=== PATIENT | female | born 2000 | race Caucasian/White ===

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

== ENCOUNTER 2022-05-16 15:06 | Emergency (ER) | payer OTHER ==
[2022-05-16 15:16] VITALS: RESP 18; TEMP 98.1
--- NOTE | 2022-05-16 15:44 | ED ---
Chest Pain HPI - General Chief Complaint: Chest Pain Stated Complaint: Chest Pain Time Seen by Provider: 05/16/22 15:34 Source: patient, RN notes reviewed Mode of arrival: ambulatory Limitations: no limitations - History of Present Illness Initial Comments: This is a 22-year-old female who presents to the emergency department for chest pain. States that for the last 2-3 days, she has had intermittent episodes of chest pain that last for approximately 2 minutes. There is nothing that triggers these episodes and they occur at no particular time of the day with no specific events like exertion. Feels like she may have some shortness of breath with these episodes. Describes this as a sharp pain that starts in the center of her chest and moves to the left side. States that during an episode today, the pain went down the left arm and the left arm turned numb and cold. Denies any abdominal pain, nausea, or vomiting. She has no personal or family history of cardiac issues. Denies any fevers, chills, sore throat, cough, palpitations, abdominal pain, nausea, vomiting, diarrhea, back pain, or headaches. MD Complaint: chest pain Onset/Timin -: days(s) Pain Location: substernal, left chest Consistency: intermittent Treatments Prior to Arrival: none - Related Data Previous Rx's Medication Instructions Recorded Ibuprofen [Motrin] 600 mg PO Q8HR PRN #30 tab 05/19/20 Ibuprofen [Motrin] 600 mg PO Q8HR PRN #20 tab 10/17/20 Cyclobenzaprine [Flexeril] 5 mg PO TID PRN #20 tablet 05/16/22 Ketorolac [Toradol] 10 mg PO Q6HR PRN #12 tab 05/16/22 Allergies Allergy/AdvReac Type Severity Reaction Status Date / Time No Known Allergies Allergy Verified 05/16/22 15:16 Review of Systems ROS Statement: Those systems with pertinent positive or pertinent negative responses have been documented in the HPI. ROS Other: All systems not noted in ROS Statement are negative. EKG Findings - EKG Comments: EKG Findings:: Sinus rhythm with sinus arrhythmia. Normal axis. Ventricular rate 66 bpm, ID interval 148 ms, QRS duration 90 ms, QTC 409 ms. Past Medical History Past Medical History: No Reported History History of Any Multi-Drug Resistant Organisms: None Reported Past Surgical History: Tonsillectomy Additional Past Surgical History / Comment(s): wisdom teeth removal Past Psychological History: No Psychological Hx Reported Smoking Status: Vaper Past Alcohol Use History: None Reported Past Drug Use History: None Reported General Exam Limitations: no limitations General appearance: alert, in no apparent distress Head exam: Present: atraumatic, normocephalic, normal inspection Respiratory exam: Present: normal lung sounds bilaterally. Absent: respiratory distress, wheezes, rales, rhonchi, stridor, chest wall tenderness Cardiovascular Exam: Present: regular rate, normal rhythm, normal heart sounds. Absent: systolic murmur, diastolic murmur, rubs, gallop, clicks GI/Abdominal exam: Present: soft, normal bowel sounds. Absent: distended, tenderness, guarding, rebound, rigid Extremities exam: Present: other (2+ radial pulses in the upper extremities bilaterally with no overlying erythema, changes in temperature, or obvious deformities.) Neurological exam: Present: alert, oriented X3, CN II-XII intact Psychiatric exam: Present: normal affect, normal mood Skin exam: Present: warm, dry, intact, normal color. Absent: rash Course Vital Signs 05/16/22 05/16/22 15:14 17:41 Temperature 98.1 F Pulse Rate 75 90 Respiratory 18 18 Rate Blood Pressure 126/76 116/71 O2 Sat by Pulse 99 100 Oximetry Chest Pain MDM - MDM This is a 22-year-old female who presents to the emergency department with chest pain. Lab work was nonactionable. Chest x-ray reveals no acute cardiopulmonary process. The patient has no cardiac risk factors and her presentation, physical exam findings, and overall workup is consistent with an atypical chest pain. Rx for Flexeril and Toradol provided in the event there is a muscle skeletal component to this. She is instructed to use the Flexeril at night until she knows how it affects her, as it may be sedating. She is also advised to avoid taking [id number] anti-inflammatories with the Toradol. She will follow-up with her primary care provider and discuss a referral to cardiology if they feel that it is appropriate. Return precautions reviewed in depth, the patient is instructed to return to the emergency department with any new, worsening, or concerning symptoms. Patient verbalized understanding. This case was discussed in detail with the attending ED physician. Presentation, findings, and treatment plan discussed in detail as well. - Wells Criteria Clinical Symptoms of DVT: (0) No No Alternative Diagnosis: (0) No Immobilization of Surgery in Previous 4 Weeks: (0) No Previous DVT/PE: (0) No Hemoptysis: (0) No Malignancy: (0) No - JOSSELYN Score Age > 65: (0) No 3 or more CAD Risk Factors: (0) No Known CAD with more than 50% Stenosis: (0) No Aspirin use within the Past 7 Days: (0) No Elevated Cardiac Markers: (0) No ST Deviation Greater than 0.5mm: (0) No Disposition Clinical Impression: Atypical chest pain Disposition: HOME SELF-CARE Instructions (If sedation given, give patient instructions): Noncardiac Chest Pain (ED) Additional Instructions: Return to the emergency department with any new, worsening, or concerning symptoms. The Toradol can be taken up to every 6 hours for pain, avoid taking ibuprofen or other anti-inflammatories with this. Take the muscle relaxant at night until you know how it affects you, as it may be sedating. Follow up with your primary care provider in 1-2 days. Prescriptions: Cyclobenzaprine [Flexeril] 5 mg PO TID PRN #20 tablet PRN Reason: Pain Ketorolac [Toradol] 10 mg PO Q6HR PRN #12 tab PRN Reason: Pain Is patient prescribed a controlled substance at d/c from ED?: No Referrals: None,Stated [REFERRING] - 1-2 days
[2022-05-16 16:03] LABS: Basophils % (A) 1 %; Eosinophils # (A) 0.1 k/uL (0-0.7); Eosinophils % (A) 1 %; HCT 39.5 % (34.0-46.0); HGB 13.1 gm/dL (11.4-16.0); Lymphocytes # (A) 2.2 k/uL (1.0-4.8); Lymphocytes % (A) 26 %; MCHC 33.1 g/dL (31.0-37.0); MCV 81.8 fL (80.0-100.0); Mean Platelet Volume 7.7; Monocytes # (A) 0.4 k/uL (0-1.0); Monocytes % (A) 5 %; Neutrophils # (A) 5.4 k/uL (1.3-7.7); Neutrophils % (A) 66 %; Platelet Count 276 k/uL (150-450); RBC 4.83 m/uL (3.80-5.40); RDW 13.1 % (11.5-15.5); WBC 8.2 k/uL (4.0-11.0)
[2022-05-16 16:14] LABS: ALT 16 U/L (4-34); AST 21 U/L (14-36); African American GFR (CKD) >90 (>60 ml/min/1.73 sqM); Albumin 4.7 g/dL (3.5-5.0); Alkaline Phosphatase 61 U/L (38-126); Anion Gap 12 mmol/L; Blood Urea Nitrogen 9 mg/dL (7-17); Calcium 9.4 mg/dL (8.4-10.2); Carbon Dioxide 24 mmol/L (22-30); Chloride 103 mmol/L (98-107); Glucose 88 mg/dL (74-99); Magnesium 2.1 mg/dL (1.6-2.3); Non-African American GFR(CKD) >90 (>60 ml/min/1.73 sqM); Potassium 3.9 mmol/L (3.5-5.1); Sodium 139 mmol/L (137-145); Total Bilirubin 0.3 mg/dL (0.2-1.3); Total Protein 7.6 g/dL (6.3-8.2)
[2022-05-16 16:17] LABS: INR 0.9 (<1.2); Prothrombin Time 10.4 sec (9.0-12.0)
[2022-05-16 16:29] LABS: Appearance,Urine Clear (Clear); Bilirubin,Urine Negative (Negative); Blood,Urine Negative (Negative); Color,Urine Light Yellow; Glucose,Urine (UA) Negative (Negative); Ketones,Urine Negative (Negative); Leukocyte Esterase,Urine Negative (Negative); Nitrite,Urine Negative (Negative); Protein,Urine Negative (Negative); Urobilinogen,Urine <2.0 mg/dL (<2.0)
[2022-05-16] MEDS ORDERED: ORPHENADRINE 30 MG/ML 2 ML VIAL IVP STA (16:38)
[2022-05-16] MEDS ORDERED: KETOROLAC 15 MG/ML 1 ML VIAL IVP STA (16:38)
--- NOTE | 2022-05-16 17:00 | XR ---
EXAMINATION TYPE: XR chest 2V DATE OF EXAM: 05/16/2022 COMPARISON: NONE HISTORY: Chest pain TECHNIQUE: 2 views FINDINGS: Heart and mediastinum are normal. Lungs are clear. Diaphragm is normal. Bony thorax is inta ct. IMPRESSION: Normal chest. No change.
[2022-05-16 17:41] VITALS: BP 116/71; PULSE 90
== END 2022-05-16 17:45 | disposition home or self-care (01) ==
LOC: EC 15:06
DX: R07.89 Other chest pain (principal); F17.290 Nicotine dependence, other tobacco product, uncomplicated
CPT/HCPCS: 36415; 71046; 80053; 81003; 81025; 83735; 84484; 85025; 85379; 85610; 85730; 93005; 99285

== ENCOUNTER 2022-08-30 11:07 | Emergency (ER) | payer OTHER ==
[2022-08-30 12:28] LABS: Basophils % (A) 0 %; Eosinophils # (A) 0.1 k/uL (0-0.7); Eosinophils % (A) 1 %; HCT 39.9 % (34.0-46.0); HGB 13.1 gm/dL (11.4-16.0); Lymphocytes # (A) 1.3 k/uL (1.0-4.8); Lymphocytes % (A) 18 %; MCH 26.4 pg (25.0-35.0); MCHC 32.8 g/dL (31.0-37.0); MCV 80.3 fL (80.0-100.0); Mean Platelet Volume 7.3; Monocytes # (A) 0.5 k/uL (0-1.0); Monocytes % (A) 7 %; Neutrophils # (A) 5.2 k/uL (1.3-7.7); Neutrophils % (A) 72 %; Platelet Count 254 k/uL (150-450); RBC 4.96 m/uL (3.80-5.40); RDW 12.9 % (11.5-15.5); WBC 7.3 k/uL (4.0-11.0)
--- NOTE | 2022-08-30 12:34 | XR ---
EXAMINATION TYPE: XR chest 2V DATE OF EXAM: 08/30/2022 COMPARISON: 05/16/2022 TECHNIQUE: PA and lateral views submitted. HISTORY: Pain FINDINGS: The lungs are clear and there is no pneumothorax, pleural effusion, or focal pneumonia. Heart size normal and no overt failure. Osseous structures demonstrate hypertrophic and degenerative changes of the spine. IMPRESSION: 1. No acute process.
[2022-08-30 12:36] LABS: Appearance,Urine Clear (Clear); Bilirubin,Urine Negative (Negative); Blood,Urine Negative (Negative); Color,Urine Yellow; Glucose,Urine (UA) Negative (Negative); Ketones,Urine Negative (Negative); Leukocyte Esterase,Urine Negative (Negative); Nitrite,Urine Negative (Negative); Protein,Urine Negative (Negative); Specific Gravity,Urine 1.006 (1.001-1.035); Urobilinogen,Urine <2.0 mg/dL (<2.0)
[2022-08-30 12:37] LABS: African American GFR (CKD) >90 (>60 ml/min/1.73 sqM); Albumin 4.3 g/dL (3.5-5.0); Alkaline Phosphatase 132 U/L (38-126); Amylase 32 U/L (30-110); Anion Gap 6 mmol/L; Blood Urea Nitrogen 11 mg/dL (7-17); Calcium 10.2 mg/dL (8.4-10.2); Carbon Dioxide 28 mmol/L (22-30); Chloride 105 mmol/L (98-107); Glucose 101 mg/dL (74-99); INR 0.9 (<1.2); Lipase 162 U/L (23-300); Magnesium 2.1 mg/dL (1.6-2.3); Non-African American GFR(CKD) >90 (>60 ml/min/1.73 sqM); Partial Thromboplastin Time 23.4 sec (22.0-30.0); Potassium 4.4 mmol/L (3.5-5.1); Prothrombin Time 10.1 sec (9.0-12.0); Sodium 139 mmol/L (137-145); Total Protein 7.4 g/dL (6.3-8.2)
[2022-08-30] MEDS ORDERED: ONDANSETRON 4 MG/2 ML VIAL IVP STA (12:40)
[2022-08-30 12:48] LABS: Amphetamine Screen,Urine Not Detected (NotDetected); Barbiturate Screen,Urine Not Detected (NotDetected); Benzodiazepines Screen,Urine Not Detected (NotDetected); Cocaine Screen,Urine Not Detected (NotDetected); Methadone Screen, Urine Not Detected (NotDetected); Opiate Screen,Urine Not Detected (NotDetected); Oxycodone Screen, Urine Not Detected (NotDetected); Phencyclidine Screen,Urine Not Detected (NotDetected); Tricyclic Antidepressant,Urine Not Detected (NotDetected); Urn Cannabinoid Scrn Not Detected (NotDetected)
[2022-08-30 12:57] LABS: AST 753 U/L (14-36)
[2022-08-30 12:58] LABS: ALT 995 U/L (4-34)
--- NOTE | 2022-08-30 13:05 | ED ---
Chest Pain HPI - General Chief Complaint: Chest Pain Stated Complaint: chest pain Time Seen by Provider: 08/30/22 11:43 Source: patient, family, RN notes reviewed Mode of arrival: ambulatory - History of Present Illness Initial Comments: This is a 22-year-old female who presents to the emergency department for chest pain. States that this started last night. She has associated nausea but no vomiting. Describes this as being in the epigastric region with radiation into the back. Symptoms are described as a tightness wrapping around her chest. When these symptoms occur, she feels like she panics and it gets hard to breathe. Denies any history of similar symptoms in the past. This does not occur after she eats. She has no personal or family history of cardiac issues. Denies any fevers, chills, sore throat, cough, palpitations, vomiting, diarrhea, or headaches. MD Complaint: chest pain Onset/Timin -: days(s) Pain Location: substernal, epigastric Pain Radiation: back - Related Data Home Medications Medication Instructions Recorded Confirmed Omeprazole 20 mg PO DAILY PRN 08/30/22 08/30/22 Previous Rx's Medication Instructions Recorded Cyclobenzaprine [Flexeril] 5 mg PO TID PRN #20 tablet 05/16/22 Ondansetron Odt [Zofran Odt] 4 mg PO Q8HR PRN #15 tab 08/30/22 Allergies Allergy/AdvReac Type Severity Reaction Status Date / Time No Known Allergies Allergy Verified 08/30/22 12:20 Review of Systems ROS Statement: Those systems with pertinent positive or pertinent negative responses have been documented in the HPI. ROS Other: All systems not noted in ROS Statement are negative. Past Medical History Past Medical History: No Reported History History of Any Multi-Drug Resistant Organisms: None Reported Past Surgical History: Tonsillectomy Additional Past Surgical History / Comment(s): wisdom teeth removal Past Psychological History: No Psychological Hx Reported Smoking Status: Vaper Past Alcohol Use History: None Reported Past Drug Use History: None Reported General Exam Limitations: no limitations General appearance: alert, in no apparent distress Head exam: Present: atraumatic, normocephalic, normal inspection Respiratory exam: Present: normal lung sounds bilaterally. Absent: respiratory distress, wheezes, rales, rhonchi, stridor Cardiovascular Exam: Present: regular rate, normal rhythm, normal heart sounds. Absent: systolic murmur, diastolic murmur, rubs, gallop, clicks GI/Abdominal exam: Present: soft, tenderness (RUQ and epigastric), normal bowel sounds. Absent: distended Neurological exam: Present: alert, oriented X3, CN II-XII intact Psychiatric exam: Present: normal affect, normal mood Skin exam: Present: warm, dry, intact, normal color. Absent: rash Course Vital Signs 08/30/22 08/30/22 08/30/22 11:18 12:20 12:23 Temperature 98.4 F Pulse Rate 77 77 Pulse Rate [ 67 Medical Reviewer ] Respiratory 18 18 Rate Blood Pressure 125/82 118/80 O2 Sat by Pulse 98 98 Oximetry 08/30/22 08/30/22 13:16 14:14 Temperature 98.2 F Pulse Rate 69 72 Pulse Rate [ Medical Reviewer ] Respiratory 18 17 Rate Blood Pressure 106/78 118/84 O2 Sat by Pulse 98 99 Oximetry Chest Pain MDM - MDM This is a 22-year-old female who presents to the emergency department for chest pain. Was pt. sent in by a medical professional or institution? @ -Her PCP Did you speak to anyone other than the patient for history? @ -Her mother Did you review nursing and triage notes? @ -Agree, accurate with regards to the patient's symptoms. Were old charts reviewed? @ -No Differential Diagnosis? @ -Differential Chest Pain: Stable Angina, Unstable Angina, STEMI, NSTEMI Aortic Dissection, Pneumothorax, Musculoskeletal, Esophageal Spasm GERD, Cholecystitis, Pancreatitis, Zoster, this is not meant to be an all-inclusive list. EKG interpreted by me (3pts min.)? @ -Sinus rhythm. Ventricular rate 73 beats per minute, ID interval 150 ms, QRS duration 85 ms, QTC 376 ms. X-rays interpreted by me (1pt min.)? @ --Chest x-ray obtained, my interpretation identifies no localized consolidations or infiltrates. U/S interpreted by me (1pt. min.)? @ -My interpretation of the gallbladder US reveals sludge and a dilated CBD. What testing was considered but not performed? (CT, X-rays, U/S, labs)? Why? @ -None What meds were considered but not given? Why? @ -None Did you discuss the management of the patient with other professionals? @ -No Did you reconcile home meds? @ -No Was smoking cessation discussed for >3mins.? @ -No Was critical care preformed (if so, how long)? @ -No Were there social determinants of health that impacted care today? How? (Homelessness, low income, unemployed, alcoholism, drug addiction, transportation, low edu. Level, literacy, decrease access to med. care, [facility] [facility], rehab)? @ -No Was there de-escalation of care discussed even if they declined? (Discuss DNR or withdrawal of care, Hospice)? @ -No What co-morbidities impacted this encounter? (DM, HTN, Smoking, COPD, CAD, Cancer, CVA, Hep., AIDS, mental health diagnosis, sleep apnea, morbid obesity)? @ -None Was patient admitted / discharged? @ -Lab work obtained revealing a significant elevation in the patient's liver enzymes. US of the gallbladder reveals gallstones, sludge, and a dilated CBD. The dilated CBD with associated liver enzyme elevation is concerning for a choledocolithiasis. This was discussed with the patient in that because we do not have gastroenterology available here, it is advised that we transfer her to another hospital for management. The patient states that her car is here and she needs to figure out childcare for her daughter and requests outpatient follow up. Dr. Allen spoke with the patient as well regarding the urgency of the situation and that her symptoms will likely recur and eating will become very difficult. Patient continued to decline transfer. She ended up leaving [facility]. She is advised to go to another emergency department in the next 1-2 days such as [facility] with GI available for management of this problem. Drug Therapy requiring intensive monitoring for toxicity (Heparin, Nitro, Insulin, Cardizem)? @ -None Were any procedures done? @ -None Diagnosis/symptom? @ -Choledocolithiasis Acute, or Chronic, or Acute on Chronic? @ -Acute Uncomplicated (without systemic symptoms) or Complicated (systemic symptoms)? @ -Complicated Side effects of treatment? @ -None Exacerbation, Progression, or Severe Exacerbation] @ -Not applicable Poses a threat to life or bodily function? @ -Yes Diagnosis/symptom? @ -Cholelithiasis Acute, or Chronic, or Acute on Chronic? @ -Acute Uncomplicated (without systemic symptoms) or Complicated (systemic symptoms)? @ -Complicated Side effects of treatment? @ -None Exacerbation, Progression, or Severe Exacerbation] @ -Not applicable Poses a threat to life or bodily function? @ -Yes Diagnosis/symptom? @ -Cholecystitis Acute, or Chronic, or Acute on Chronic? @ -Acute Uncomplicated (without systemic symptoms) or Complicated (systemic symptoms)? @ -Complicated Side effects of treatment? @ -None Exacerbation, Progression, or Severe Exacerbation] @ -Not applicable Poses a threat to life or bodily function? @ -Yes Return precautions reviewed in depth, the patient is instructed to return to the emergency department with any new, worsening, or concerning symptoms. Patient verbalized understanding. This case was discussed in detail with the attending ED physician, Dr. Allen. Presentation, findings, and treatment plan discussed in detail as well. Disposition Clinical Impression: Cholelithiasis, Choledocholithiasis Disposition: Left Against Medical Advice Instructions (If sedation given, give patient instructions): Biliary Colic ( ED), Gallstones (ED) Additional Instructions: Return to the emergency department with any new, worsening, or concerning symptoms. You will need to eat a low-fat and very bland diet to reduce the risk of additional episodes, however be aware that despite this, additional episodes may still recur. Alternate with ibuprofen and Tylenol as needed for pain relief. The Zofran can be taken up to every 8 hours as needed for nausea and vomiting. Please go to the emergency department at [facility] or somewhere else in the next 1-2 days for management of these problems. Follow up with your primary care provider in 1-2 days. Prescriptions: Ondansetron Odt [Zofran Odt] 4 mg PO Q8HR PRN #15 tab PRN Reason: Nausea And Vomiting Is patient prescribed a controlled substance at d/c from ED?: No Referrals: Hernesto Elias DO [Primary Care Provider] - 1-2 days
--- NOTE | 2022-08-30 13:48 | US ---
EXAMINATION TYPE: US gallbladder DATE OF EXAM: 08/30/2022 COMPARISON: NONE CLINICAL HISTORY: Epigastric pain. TECHNIQUE: Multiple sonographic images of the right upper quadrant are obtained. FINDINGS: EXAM MEASUREMENTS: Liver Length: 16 cm Gallbladder Wall: .3 cm CBD: .9 cm Right Kidney: 11.6 x 4.4 x 5.8 cm [employer] DEVELOPER NOTES: Pancreas: wnl Liver: wnl Gallbladder: Low levels visualized possible small stones. Evidence for sonographic Birch's sign: no CBD: Dilated. Right Kidney: wnl The visualized portions of the pancreas is within normal limits. The liver is unremarkable without ev idence of focal lesion. Low level echoes demonstrated layering within gallbladder likely represent sl udge and stones. No positive sonographic Birch sign. The common bile duct is dilated measuring up to 9 mm. The right kidney is unremarkable without evidence of hydronephrosis, shadowing calculi, and co ntour deforming solid mass. IMPRESSION: 1. Trace gallbladder sludge and stones without evidence for acute cholecystitis. 2. Dilated common bile duct measuring up to 9 mm. Consider further evaluation with MRCP if there is clinical concern for choledocholithiasis.
[2022-08-30] MEDS ORDERED: ACET/COD 300 MG/30 MG STARTER PACK 6 TAB BTL PO STA (14:14)
[2022-08-30] MEDS ORDERED: ONDANSETRON 4 MG ODT STARTER PACK 2 TAB BTL PO STA (14:14)
[2022-08-30] MEDS ORDERED: IBUPROFEN 600 MG STARTER PACK 4 TAB BTL PO STA (14:14)
[2022-08-30 14:15] VITALS: BP 118/84; PULSE 72; RESP 17
[2022-08-30 14:16] VITALS: TEMP 98.2
== END 2022-08-30 14:44 | disposition left against medical advice (07) ==
LOC: EC 11:07
DX: K80.50 Calculus of bile duct without cholangitis or cholecystitis without obstruction (principal); K80.20 Calculus of gallbladder without cholecystitis without obstruction; F17.290 Nicotine dependence, other tobacco product, uncomplicated; Z53.29 Procedure and treatment not carried out because of patient's decision for other reasons
CPT/HCPCS: 36415; 93005; 80053; 82150; 83690; 83735; 84484; 85025; 85610; 85730; 81003; 81025; 80306; 71046; 76705; 99285; 96374; J2405; S0119